=== PATIENT | male | born 1955 | race African-American/Black ===

== ENCOUNTER 2016-12-04 19:58 | Inpatient (IN) | payer OTHER ==
--- NOTE | ~2016-12-04 | CT57 ---
[facility] A Service of [facility] RADIOLOGY TEXT RESULTS PATIENT: JUAN PETERSEN LOCATION: [facility] 473 : 59 UNIT #: [id number] AGE: [address]: Elver Lovelace MD SEX: M ORDER DR: [id number] [facility] [address] [place], [place] [address] [id number] I MR#: [id number] Acc #: [id number] NAME: JUAN PETERSEN : 1955 SEX: M STUDY DATE/TIME: 12/06/2016 15:58 UNIT: [facility] ROOM: [facility] STUDY DESCRIPTION: CT Chest Wo Cont Attending Physician: Catalina Mcgrath M.D. Ordering Physician: Catalina Mcgrath M.D. Primary Care Physician: Evan Thompson Sr., M.D. MEDICAL IMAGING REPORT This report is preliminary unless electronic signature is present EXAM CT chest without contrast, 12/06/2016 INDICATION Hypercalcemia. Concern for occult malignancy. PROCEDURE Unenhanced CT of the chest. COMPARISON None. TECHNIQUE This CT exam was performed with one or more of the following radiation dose reduction techniques: automatic exposure control, adjustment of mA and/or kV according to patient size, and iterative reconstruction. FINDINGS Minimal scarring in the lower lobes. Otherwise the lungs are clear. There is no pleural fluid or pneumothorax. Cardiomegaly. No pericardial fluid. Prominent calcified mediastinal lymph nodes, suggesting sequela of previous granulomatous disease. Previous right thyroidectomy. Nodules in the left lobe measuring up to 1.3 cm. Ascending thoracic aorta measures 4.3 cm. Coronary artery calcification. No aggressive-appearing bone lesion. IMPRESSION 1. No convincing evidence for malignancy in the chest. 2. Previous granulomatous disease. 3. Cardiomegaly, coronary artery calcification and aneurysmal dilation of the ascending thoracic aorta. [facility] A Service [facility] RADIOLOGY TEXT RESULTS PATIENT: JUAN PETERSEN LOCATION: [facility] : 59 UNIT #: [id number] AGE: [address]: Elver Lovelace MD SEX: M ORDER DR: 4. Previous right thyroidectomy. Nodules in the left lobe would be best evaluated with dedicated thyroid ultrasound. Dictated by... Misha Mcmahon M.D. THIS IS AN ELECTRONICALLY VERIFIED REPORT Misha Mcmahon M.D. at 12/07/2016 9:56 PM ANGELA/shauna TD: 12/07/2016 03:28 JOB #: [id number] MEDICAL IMAGING REPORT Page 1 of 1 COPY
--- NOTE | ~2016-12-04 | CT4 ---
[facility] A Service [facility] RADIOLOGY TEXT RESULTS PATIENT: JUAN PETERSEN LOCATION: [facility] 473 : 59 UNIT #: [id number] AGE: [address]: Elver Lovelace MD SEX: M ORDER DR: [id number] [facility] [address] [place], [place] [address] [id number] I MR#: [id number] Acc #: [id number] NAME: JUAN PETERSEN : 1955 SEX: M STUDY DATE/TIME: 12/06/2016 15:58 UNIT: [facility] ROOM: [facility] STUDY DESCRIPTION: CT Abd and Pelv Wo Cont Attending Physician: Catalina Mcgrath M.D. Ordering Physician: Catalina Mcgrath M.D. Primary Care Physician: Evan Thompson Sr., M.D. MEDICAL IMAGING REPORT This report is preliminary unless electronic signature is present EXAM CT abdomen and pelvis without contrast, 12/06/2016 INDICATIONS Hypercalcemia of uncertain cause. Concern for malignancy. Observation for malignancy. PROCEDURE Unenhanced CT of the abdomen and pelvis. This CT exam was performed with one or more of the following radiation dose reduction techniques: automatic exposure control, adjustment of mA and/or kV according to patient size, and iterative reconstruction. COMPARISON None. FINDINGS Refer to the separately dictated chest CT for thoracic findings. ABDOMEN WITHOUT CONTRAST: The liver, spleen, adrenal glands, pancreas, and gallbladder have an unremarkable unenhanced appearance. Bowel loops are nondilated. Moderate colonic stool burden. Colonic diverticula with no convincing evidence for active complication. The appendix is nondilated. No abdominal adenopathy. Multiple bilateral renal cysts. Indeterminate 1.4 cm lesion upper pole of the left kidney. Small fat-containing umbilical hernia. PELVIS WITHOUT CONTRAST: No pelvic mass, fluid or adenopathy. No [facility] A Service [facility] RADIOLOGY TEXT RESULTS PATIENT: JUAN PETERSEN LOCATION: [facility] : 59 UNIT #: [id number] AGE: [address]: Elver Lovelace MD SEX: M ORDER DR: aggressive-appearing bone lesion. IMPRESSION 1. No acute findings. 2. Multiple bilateral renal cysts. 3. A 1.4 cm indeterminate lesion upper pole left kidney may represent a benign proteinaceous or hemorrhagic cyst. Cannot exclude a solid mass on this study. This would be best evaluated with renal protocol MRI or CT if the patient's renal function allows, otherwise unenhanced MRI of renal ultrasound may be helpful. 4. Moderate colonic stool burden. Dictated by... Misha Mcmahon M.D. THIS IS AN ELECTRONICALLY VERIFIED REPORT Misha Mcmahon M.D. at 12/07/2016 9:56 PM ANGELA/shauna TD: 12/07/2016 03:33 JOB #: [id number] MEDICAL IMAGING REPORT Page 1 of 1 COPY
--- NOTE | ~2016-12-04 | DS ---
Unit #: [id number] #: [id number] Patient: JUAN PETERSEN [id number] [address] [place], [place] [address] [id number] I MR#: [id number] NAME: JUAN PETERSEN ROOM: 473 Age: 61 Sex: M Admission Date: 12/04/2016 : 1955 Discharge Date: 12/07/2016 Attending Physician: Elver Lovelace M.D. Primary Care Physician: Evan Thompson Sr., M.D. DISCHARGE SUMMARY DISCHARGE DIAGNOSES 1. Acute on chronic kidney disease, stage 4 to 5. 2. Hypercalcemia. 3. Iron-deficiency anemia/anemia of inflammation. HOSPITAL COURSE The patient is a 61-year-old male admitted through [facility] Emergency Department on 12/04/2016 secondary to elevated creatinine. 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 The patient was started on IV fluids and then given one dose of Bumex. The patient was seen in consultation by Nephrology. The patient's creatinine has been relatively stable. At the time of discharge is 5.6 with a BUN of 55. The patient has undergone vein mapping for future AV fistula which will be scheduled as an outpatient. Given the above interventions and stabilization of the patient's creatinine, he is being discharged home. DISCHARGE MEDICATIONS Celexa 20 mg p.o. daily, trazodone 50 mg p.o. q.h.s., hydroxyzine 25 mg p.o. q.8 hours p.r.n. itch, Toprol-XL 50 mg p.o. daily, pravastatin 40 mg daily, felodipine ER 10 mg daily, minoxidil 10 mg daily, ranitidine 150 mg p.o. b.i.d., Zyloprim 100 mg p.o. b.i.d., melatonin 5 mg p.o. q.h.s. p.r.n. aspirin 81 mg daily, Imdur ER 30 mg p.o. daily, NitroQuick 0.4 mg sublingual as needed for chest pain, and calcitriol 0.5 mcg p.o. daily. FOLLOWUP The patient should follow up with Dr. Harley Weathers with Renal in 2 weeks. Additionally, as mentioned above, the office of Dr. Britton will call the patient with an appointment for left radiocephalic AV fistula surgery. Dictated by... Gualberto Cordoba/yonatan TD: 12/07/2016 22:55 JOB #: [id number] Unit #: [id number] #: [id number] Patient: PETERSENJUAN DISCHARGE SUMMARY Page 1 of 1 X Elver Lovelace MD X DISCHARGE SUMMARY
--- NOTE | ~2016-12-04 | CO ---
Unit #: [id number] #: [id number] Patient: JUAN PETERSEN [id number] [address] [place], [place] [address] [id number] I MR#: [id number] NAME: JUAN PETERSEN ROOM: 473 Age: 61 Sex: M Admission Date: 12/04/2016 : 1955 Attending Physician: Elver Lovelace M.D. Primary Care Physician: Evan Thompson Sr., M.D. Consultation Date: 12/05/2016 CONSULTATION REPORT REASON FOR CONSULTATION Elevated creatinine level. HISTORY OF PRESENT ILLNESS The patient is a 61-year-old male with known history of hypertension, coronary artery disease, hyperlipidemia, depression, and chronic kidney disease, who was lost to follow up, has been ranging the creatinine level in low 5. The patient came after one year and noted to have a BUN of 76 and creatinine of 6.4, then being admitted for possible initiation of dialysis. The patient does not report vomiting, diarrhea, fevers, or chills. PAST MEDICAL HISTORY Significant for chronic kidney disease, stage 4 approaching stage 5; coronary artery disease; hypertension; GERD; hyperlipidemia; and history of depression. PAST SURGICAL HISTORY Bilateral knee surgery and thyroid surgery. SOCIAL HISTORY The patient does not smoke. He has quit drinking more than 10 years ago. HOME MEDICATIONS Allopurinol 100 mg b.i.d., aspirin 81 mg daily, calcitriol 0.5 mcg by mouth daily, Celexa 20 mg daily, Lasix 40 mg daily, Imdur 30 mg daily, minoxidil 10 mg daily, pravastatin 40 mg daily, hydroxyzine 25 mg three times as needed, ranitidine 150 mg b.i.d., trazodone 50 mg at bedtime, felodipine 10 mg daily, and metoprolol 200 mg daily. REVIEW OF SYSTEMS CVS: No chest pain. RESPIRATORY: No cough or expectoration. GI: No diarrhea. No vomiting. : No hematuria. No dysuria. PHYSICAL EXAMINATION GENERAL: The patient is awake and alert. VITAL SIGNS: Temperature is 98.1, heart is rate 71 per minute, and blood pressure is 119/68. HEENT: Head is atraumatic. Extraocular movements are intact. NECK: Supple. There is no elevation of the JVD. CHEST: Clear. Air entry is equal bilaterally. Breathing is vesicular in nature. S1 and S2 audible. There is no S3, no S4. Unit #: [id number] #: [id number] Patient: JUAN PETERSEN ABDOMEN: Soft. There is no organomegaly. No guarding. No rigidity. No rebound tenderness. There is no edema. 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 Cerebellar system is intact. DIAGNOSTIC STUDIES LABORATORY RESULTS: The WBC is 4.7, hemoglobin is 10.5, hematocrit is 32.5, and platelets 192. Sodium is 142, potassium is 4.3, chloride is 106, CO2 is 28, glucose 96, BUN is 65, creatinine 5.9, and calcium 11.3. The urinalysis has 0 to 2 wbc, rbc. IMPRESSION 1. Chronic kidney disease, stage 4 approaching stage 5. We will follow renal function after gentle hydration. Might need initiation of dialysis. The patient's creatinine has been gradually and progressively worsening. We will check a renal ultrasound also for any obstruction. 2. Hypercalcemia, likely secondary to chronic kidney disease. 3. Secondary hyperparathyroidism. 4. Anemia. Check the levels. 5. Possible chronic kidney disease causing anemia. 6. Check iron stores. 7. No clinical uremia. We will follow. Dictated by... Gualberto Bauer TD: 12/07/2016 12:22 JOB #: [id number] CONSULTATION REPORT Page 1 of 1 X Harley Weathers MD X CONSULTATION REPORT
--- NOTE | ~2016-12-04 | HP ---
Unit #: [id number] #: [id number] Patient: JUAN PETERSEN [id number] [address] [place], [place] [address] [id number] I MR#: [id number] NAME: JUAN PETERSEN ROOM: 65949 Age: 61 Sex: M Admission Date: 12/04/2016 : 1955 Attending Physician: Catalina Mcgrath M.D. Primary Care Physician: Evan Thompson Sr., M.D. HISTORY AND PHYSICAL CHIEF COMPLAINT Patient was sent to the ER from nephrology for abnormal labs - BUN 76, creatinine 6.54. DISCUSSION This is a 61-year-old gentleman who has a past medical history of chronic kidney disease, coronary artery disease, hypertension, GERD, dyslipidemia, depression. 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 Weathers, and he was told to come to the emergency room. Today he came to the ER. Yesterday labs were done, and BUN was 76, creatinine 6.4. Today, BUN is 65, creatinine 5.9. The patient is being admitted. He denies any complaints. No chest pain. No shortness of breath. No nausea. No vomiting. No dysuria. No abdominal pain. No headache. No dizziness. PAST MEDICAL HISTORY 1. History of chronic kidney disease. 2. Coronary artery disease. 3. Hypertension. 4. GERD. 5. Dyslipidemia. 6. History of depression. PAST SURGICAL HISTORY 1. History of bilateral knee surgery. 2. Thyroid surgery. SOCIAL HISTORY He does not smoke. He said he used to drink alcohol, but he quit 12-13 years ago. Denies other illicit drug use. FAMILY HISTORY Strong family history of premature coronary artery disease. He says his 2 brothers at age 48 from MS; one brother at age 42 from MS. MEDICATIONS FROM HOME 1. Allopurinol 100 mg b.i.d. 2. Aspirin 81 mg daily. 3. Calcitriol 0.5 mcg p.o. daily. 4. Celexa 20 mg daily. 5. Lasix 40 mg daily. 6. Imdur 30 mg daily. 7. Melatonin 5 mg daily. 8. Minoxidil 10 mg daily. Unit #: [id number] #: [id number] Patient: JUAN PETERSEN 9. Nitroglycerin 0.4 mg sublingual p.r.n. 10. Pravastatin 40 mg daily. 11. Hydroxyzine 25 mg q.8 hours p.r.n. 12. Ranitidine 150 mg b.i.d. 13. Trazodone 50 mg at bedtime. 14. Felodipine 10 mg daily. 15. Metoprolol succinate 200 mg daily. REVIEW OF SYSTEMS All review of systems negative except as in history of present illness. PHYSICAL EXAMINATION GENERAL: Middle-aged man lying in bed comfortably, currently not in any distress. He is alert, awake, oriented x3, comfortable, not in any distress. CURRENT VITALS: Temperature 98.1, heart rate 71, respirations 16, blood pressure 119/68. HEENT: Pupils are equal and reactive to light. Head is normocephalic and atraumatic. Pharynx normal. NECK: Neck is supple. No JVD. No thyromegaly. Positive scar on anterior neck. LUNGS: Lungs are clear to auscultation. No rhonchi. No wheezing. HEART: S1, S2. Regular rate and rhythm. No murmur. No gallop. ABDOMEN: Abdomen is soft, nontender, nondistended. Bowel sounds are positive. BACK: No CVA tenderness. SKIN: No rash. No lesions. Warm, dry. EXTREMITIES: Inspection is normal. No cyanosis. No clubbing. No edema. NEUROLOGIC: Alert, oriented x4. Cranial nerves II-XII intact. Power 5/5 on both sides. PSYCHIATRIC: Normal mood and affect. DIAGNOSTIC STUDIES LABORATORY WORKUP: Sodium is 142, potassium 4.3, chloride 106, glucose 96, BUN 65, creatinine 5.9. LFTs within normal limits. UA is negative. INR is 1. White count is 4.7, hemoglobin 10, hematocrit 32, platelets 192. ASSESSMENT AND PLAN 1. Acute kidney injury on chronic kidney disease. Admit the patient. Start on IV fluids with normal saline, Bumex give one dose of 2 mg IV x1 at 2 a.m. as per nephrology, Dr. Weahters. 2. Coronary artery disease. 3. Hypertension. 4. GERD. 5. Dyslipidemia. 6. History of depression. 7. DVT prophylaxis. Will place the patient on Lovenox renally dosed. 1. Dictated by Gualberto Ghosh/rashid TD: 12/05/2016 07:49 JOB #: [id number] Unit #: [id number] #: [id number] Patient: JUAN PETERSEN HISTORY AND PHYSICAL Page 1 of 1 X X HISTORY AND PHYSICAL
--- NOTE | ~2016-12-04 | CO ---
Unit #: [id number] #: [id number] Patient: JUAN BARRIOS [id number] [address] [address] [id number] I MR#: [id number] NAME: JUAN BARRIOS ROOM: 473 Age: 61 Sex: M Admission Date: 12/04/2016 : 1955 Attending Physician: Elver Lovelace M.D. Primary Care Physician: Evan Thompson Sr., M.D. Consultation Date: 12/06/2016 CONSULTATION REPORT REASON FOR CONSULTATION Dialysis access evaluation. HISTORY Mr. Barrios is a 61-year-old gentleman with a history of chronic kidney disease. He was apparently visiting his primary care physician and was noted to have significant worsening of his renal function on his lab work. He was referred to the hospital for further evaluation. He has never been on dialysis previously, but has anticipated required dialysis in the future. He denies any complaints currently. He has not had any shortness of breath or chest pain. He denies any nausea or vomiting. He has never been on dialysis previously. He is right handed. PAST MEDICAL HISTORY 1. Chronic kidney disease. 2. Coronary artery disease. 3. Hypertension. 4. Gastroesophageal reflux disease. 5. Hyperlipidemia. 6. Depression. PAST SURGICAL HISTORY 1. Left knee reconstructive surgery. 2. Right knee arthroscopy. 3. Thyroidectomy. 4. Removal of a skin lesion from his left wrist. MEDICATIONS 1. Allopurinol 100 mg p.o. twice a day. 2. Aspirin 81 mg p.o. daily. 3. Calcitriol 0.5 mcg p.o. daily. 4. Celexa 20 mg p.o. daily. 5. Lasix 20 mg p.o. daily. 6. Imdur 30 mg p.o. daily. 7. Melatonin 5 mg p.o. daily. 8. Minoxidil 20 mg p.o. daily. 9. Nitroglycerin 0.4 mg sublingual p.r.n. 10. Pravastatin 40 mg p.o. daily. 11. Hydroxyzine 25 mg p.o. every eight hours as needed. 12. Ranitidine 150 mg p.o. twice a day. 13. Trazodone 50 mg p.o. daily at bedtime. 14. Felodipine 10 mg p.o. daily. 15. Metoprolol 200 mg p.o. daily. Unit #: [id number] #: [id number] Patient: JUAN BARRIOS ALLERGIES None. SOCIAL HISTORY He lives with his girlfriend in [place]. 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 He has never smoked. He quit drinking alcohol more than ten years ago. FAMILY HISTORY He has two brothers who in their 40s from heart attacks. He has a third brother who survived a heart attack but required coronary bypass at an early age. His mother had tuberculosis as a child. His father has had lung cancer and prostate cancer. REVIEW OF SYSTEMS Ten point review of systems is negative. PHYSICAL EXAMINATION VITALS: Temperature 98.1, heart rate 71, respirations 16, blood pressure 119/68. GENERAL APPEARANCE: Thin, black male. Pleasant and cooperative. Fully alert and oriented. Appropriate affect. Fair historian. No acute distress. HEENT: Extraocular movements intact. No xanthelasma of the eyelids. Oral mucosa is pink and moist. NECK: Anterior cervical scar from thyroidectomy. No JVD. No cervical bruits. LUNGS: Clear bilaterally. No use of accessory respiratory muscles. HEART: Regular rate and rhythm without murmur. ABDOMEN: Soft, nondistended, and nontender. No palpable masses. No palpable hepatomegaly or splenomegaly. EXTREMITIES: Hands and feet are pink but warm. No pedal edema. Easily palpable radial and femoral pulses bilaterally. Superficial veins in both arms appear good size and compressible. IMPRESSION 1. Stage 4 chronic kidney disease with acute kidney injury: Anticipated required dialysis in the future. 2. Coronary artery disease. 3. Hypertension. 4. Gastroesophageal reflux disease. 5. Hyperlipidemia. 6. History of depression. PLAN I have scheduled the patient for a bilateral upper extremity vein map to determine his best option for fdc dialysis access. He appears to be an appropriate candidate for creation of an autogenous arterial venous fistula, preferably in his left arm since he is right handed. We can discuss timing of surgery following completion of his vein map. If he remains in the hospital for a few days, we may be able to do something while he is here. If he is ready for discharge, we can schedule his fistula creation as an outpatient. These findings and recommendations were discussed with the patient. Unit #: [id number] #: [id number] Patient: JUAN BARRIOS Dictated by... Gualberto Mackay/tre TD: 12/07/2016 10:32 JOB #: [id number] CC: Harley Weathers M.D. CONSULTATION REPORT Page 1 of 1 X Andrés Britton MD X CONSULTATION REPORT
--- NOTE | ~2016-12-04 | US77 ---
[facility] A Service of [facility] RADIOLOGY TEXT RESULTS PATIENT: JUAN PETERSEN LOCATION: [facility] [address]-46 : [birth year] UNIT #: [id number] AGE: [address]: Catalina Mcgrath MD SEX: M ORDER DR: [id number] [facility] [address] [place], [place] [address] [id number] I MR#: [id number] Acc #: [id number] NAME: JUAN PETERSEN : 1955 SEX: M STUDY DATE/TIME: 12/05/2016 14:42 UNIT: [facility] ROOM: 95583 STUDY DESCRIPTION: US Kidney Bilateral Complete Attending Physician: Catalina Mcgrath M.D. Ordering Physician: Yasir Ca M.D. Primary Care Physician: Evan Thompson Sr., M.D. MEDICAL IMAGING REPORT This report is preliminary unless electronic signature is present EXAM Ultrasound bilateral kidneys, complete. DATE OF EXAM 12/05/2016 HISTORY Rule out obstruction. Surgeon Chief sent patient in for creatinine of 5.5, acute on chronic kidney disease. History of hypertension. COMMENT Real-time ultrasonography of the bilateral kidneys and images of the urinary bladder are obtained. Images obtained in 2 sessions to acquire better images. Second session performed with the help of the patient's nurse so the patient could be better positioned per technologist. Evaluation of the right kidney shows measurements of 12.3 x 6.9 x 7.5 cm. there are multiple apparent renal cysts, right kidney but there is no convincing evidence for hydronephrosis. Echotexture is abnormal with increased echogenicity consistent with underlying chronic medical renal disease. The number of cysts, raise concern for autosomal dominant polycystic kidney disease and please evaluate further clinically. Left kidney measurements are 12.3 x 7.1 x 5.7 cm. Again, there are multiple apparent cysts, left kidney and no convincing evidence for left-sided hydronephrosis. Echotexture is abnormally increased consistent with underlying chronic medical renal disease. Cortical thickness measured on the left is about 0.8 cm and on the right about 1.1 cm, though there is considerable distortion of renal parenchyma by the cyst. The urinary bladder is unremarkable. Ureteral jets not identified. IMPRESSION 1. There are too numerous to count bilateral renal cysts. The [facility] A Service of [facility] RADIOLOGY TEXT RESULTS PATIENT: JUAN PETERSEN LOCATION: [facility] [id number] : [birth year] UNIT #: [id number] AGE: [address]: Catalina Mcgrath MD SEX: M ORDER DR: appearance is most concerning for autosomal dominant polycystic kidney disease given the number of cysts in the patient's age group, but please correlate further clinically. No convincing evidence for hydronephrosis. 2. Abnormally hyperechoic renal parenchyma is consistent with underlying chronic medical renal disease. 3. Bladder is unremarkable. The ureteral jets are not documented. STAT * RESULT Dictated by... Harriet Helton M.D. THIS IS AN ELECTRONICALLY VERIFIED REPORT Harriet Helton M.D. at 12/05/2016 8:48 PM TEENA/angelina TD: 12/05/2016 17:25 JOB #: [id number] MEDICAL IMAGING REPORT Page 1 of 1 COPY
--- NOTE | ~2016-12-04 | A ---
[facility] Nutrition Therapy DATE: 12/07/16 Patient: JUAN PETERSEN Physician: VIRGIL Address: [address] Room/Bed: [address] [place] [address], Zip: [place] [address] Admit Date: 12/04/16 Date of : [birth year] Height: 6 1 Weight: 169 77 NUTRITIONAL ASSESSMENT: REASON: 4 NUTRITION RISK PT RE: WEIGHT LOSS, ALSO CONSULT RECEIVED PT IS 61 Y.O. MALE ADMITTED FOR DARWIN, CKD PMH: CKD, CAD, HTN, GERD, HLD, DEPRESSION Anthropometrics: 6'1", WT: 188# (PER PT) (85 KG), BMI: 24.8 Labs: BUN: 55, CREAT: 5.6, CA+:11.1 Meds: PEPCID, LIPITOR, NACL I/O & Bowel function: 820/1051 Skin Integrity: NO KNOWN SKIN ISSUES Estimated Nutrition Needs: INCREASED NUTRIENT NEEDS 2' WEIGHT LOSS NOTED Assessment: CHART REVIEWED AND EVENTS NOTED. PT SEEN FOR WEIGHT LOSS. PT REPORTS DECREASED PO INTAKE 2' DECREASED APPETITE PAST SEVERAL MONTHS. PT NOTES ONLY CONSUMING ONE MEAL DAILY (NOT A BREAKFAST EATER). PT REPORTS LOSING ~40# SINCE 2015/18% SEVERE WEIGHT LOSS IN PAST [address] ENCOURAGED ADEQUATE KCAL AND PROTEIN INTAKE, PT AGREED TO MOOKIE ENSURE COMPACT BID W/MEALS. PT ALSO REQUESTED WRITTEN DIET EDUCATION. RD PROVIDED. PT REPORTED NO DIET QUESTIONS AT THIS TIME. RD TO FOLLOW. Dx: INADEQUATE PROTEIN-ENERGY INTAKE R/T DECREASED APPETITE AEB PT REPORT ABOVE, ~18% SEVERE WEIGHT LOSS NOTED IN PAST 7 MONTHS. Intervention: 1. HH DIET 2. RD CONSULT 3. MOOKIE ENSURE COMPACT BID 4. RD PROVIDED WRITTEN DIET EDUCATION Monitoring, Evaluation and Goals: 1. PO INTAKE; PROVIDE AND CONSUME ADEQUATE NUTRITION W/NO C/O N/V/D (PO>50%) 2. WEIGHTS; PREVENT FURTHER WEIGHT LOSS; PROMOTE LEAN BODY MASS 3. LABS; WNL MONITOR: -PO INTAKE/APPETITE -WEIGHTS -SUPPLEMENT INTAKE [facility] Nutrition Therapy DATE: 12/07/16 Patient: JUAN PETERSEN Physician: VIRGIL Address: [address] Room/Bed: [address] [place] [address], Zip: [place] [address] Admit Date: 12/04/16 Date of : [birth year] Height: 6 1 Weight: 169 77 -EDUCATION NEEDS Recommendations: 1. PLEASE ORDER MOOKIE ENSURE COMPACT SUPPLEMENT BID W/MEALS 2. APPRECIATE FAMILY AND STAFF TO ENCOURAGE ADEQUATE KCAL AND PROTEIN INTAKE RD WILL F/U PER PROTOCOL PT IS MODERATELY COMPROMISED Respectfully, EMILY ZAMORA MS, RD, LD Food and Nutritional Services [facility] cc: client file
--- NOTE | ~2016-12-04 | US146 ---
[facility] A Service of [facility] RADIOLOGY TEXT RESULTS PATIENT: JUAN PETERSEN LOCATION: [facility] [id number] : 59 UNIT #: [id number] AGE: [address]: Elver Lovelace MD SEX: M ORDER DR: [id number] [facility] [address] [place], [place] [address] [id number] I MR#: [id number] #: [id number] NAME: JUAN PETERSEN : 1955 SEX: M STUDY DATE/TIME: 12/06/2016 12:24 UNIT: [facility] ROOM: [facility] STUDY DESCRIPTION: US Vein Map Hemodial Access Attending Physician: Elver Lovelace M.D. Ordering Physician: Andrés Britton M.D. Primary Care Physician: Evan Thompson Sr., M.D. MEDICAL IMAGING REPORT This report is preliminary unless electronic signature is present EXAM Bilateral upper extremity vein map, 12/06/2016 HISTORY Chronic kidney disease. Dialysis access evaluation. FINDINGS High-resolution B-mode imaging and color flow Doppler analysis was performed of the upper extremity arteries bilaterally. There is a normal triphasic signal in the brachial arteries on both sides. There is also a normal pulsatile flow signal in the radial and ulnar arteries bilaterally. High-resolution B-mode imaging was performed of the cephalic and basilic veins bilaterally. All veins are fully compressible with no intraluminal thrombus. The right cephalic vein measures 6.0 mm in the proximal upper arm, 6.0 mm in the mid upper arm, and 8.0 mm in the distal upper arm. There is an IV in the cephalic vein in the antecubital region. The cephalic vein measures 6.0 mm in the proximal forearm, 6.0 mm in the mid forearm, and 6.0 mm in the distal forearm. The right basilic vein measures 9.0 mm in the proximal upper arm, 8.0 mm in the mid upper arm, 8.0 mm in the distal upper arm, 5.0 mm at the elbow, 5.0 mm in the proximal forearm, 4.0 mm mid forearm, and 6.0 mm in the distal forearm. The left cephalic vein measures 7.0 mm in the proximal upper arm, 8.0 mm in mid upper arm, 9.0 mm in the distal upper arm, 12.0 mm at the elbow, 6.0 mm in the proximal forearm, 7.0 mm in the mid forearm, and 3.0 mm in the distal forearm. [facility] A Service of [facility] RADIOLOGY TEXT RESULTS PATIENT: JUAN PETERSEN LOCATION: [facility] [id number] : 59 UNIT #: [id number] AGE: [address]: Elver Lovelace MD SEX: M ORDER DR: The left basilic vein measures 12.0 mm in the proximal upper arm, 7.0 mm in the mid upper arm, 7.0 mm in the distal upper arm, 6.0 mm at the elbow, 4.0 mm in the proximal forearm, 4.0 mm in the mid forearm, and 3.0 mm in the distal forearm. IMPRESSION Normal cephalic and basilic veins bilaterally. All veins appear adequate for use as a dialysis fistula. Dictated by... Andrés Britton M.D. THIS IS AN ELECTRONICALLY VERIFIED REPORT Andrés Britton M.D. at 12/10/2016 8:27 AM Kira TD: 12/07/2016 09:20 JOB #: [id number] MEDICAL IMAGING REPORT Page 1 of 1 COPY
[2016-12-04 18:47] LABS: BASOPHIL% 0.5 % (0-2.5); EOSINOPHIL# 0.2 X10e3 (0-0.7); EOSINOPHIL% 4.6 % (0.0-7.0); HEMATOCRIT 32.5 % (38.0-50.0); HEMOGLOBIN 10.5 gm/dL (13.0-16.0); MEAN CELL VOLUME 90.5 FL (83-96); MEAN CORPUSCULAR HEMOGLOBIN 29.4 PG (28-34); MEAN CORPUSCULAR HGB CONC 32.4 g/dL (30-36); MEAN PLATELET VOLUME 7.5 FL (6.5-11.5); MONOCYTE# 0.7 X10e3 (0-1.0); NEUTROPHIL# 2.7 X10e3 (1.5-7.1); NEUTROPHIL% 57.9 % (40-75); PLATELET COUNT 192 X10e3 (140-420); RED BLOOD COUNT 3.59 X10e (3.90-5.60); RED CELL DISTRIBUTION WIDTH 15.5 % (11.0-15.5); WHITE BLOOD COUNT 4.7 X10e3 (4.0-10.5)
[2016-12-04 18:48] LABS: DIFF IND NO
[2016-12-04 18:58] LABS: URINE SOURCE CLEAN CATCH
[2016-12-04 19:04] LABS: URINE APPEARANCE CLEAR; URINE BILIRUBIN NEG (NEG); URINE BLOOD 1+ (NEG); URINE COLOR YELLOW; URINE GLUCOSE 100 MG/DL (NEG); URINE KETONE NEG (NEG); URINE LEUKOCYTE ESTERASE NEG (NEG); URINE NITRATE NEG (NEG); URINE PH 7.5 (5-8); URINE PROTEIN 1+ (NEG); URINE SPECIFIC GRAVITY 1.008 (1.003-1.035); URINE UROBILINOGEN 0.2 MG/DL (NEG)
[2016-12-04 19:07] LABS: URBCS1 AUWI 0-2 /[HPF] (0-2); URINE BACTERIA AUWI NEG (NEGATIVE); URINE SQUAMOUS EPITHELIAL CELL NONE SEEN /[HPF]; UWBCS1 AUWI 0-2 (0-5)
[2016-12-04 19:08] LABS: CULTURE INDICATED? NO
[2016-12-04 19:10] LABS: ALBUMIN SERUM 3.7 g/dL (3.5-5.0); BILIRUBIN, DIRECT 0.1 mg/dL (0.0-0.2); BILIRUBIN,INDIRECT 0.5 mg/dL (0.0-0.9); BILIRUBIN,TOTAL 0.6 mg/dL (0.2-2.0); BUN/CREATININE RATIO 11.01; CALCIUM SERUM 11.3 mg/dL (8.4-10.2); CREATININE SERUM 5.9 mg/dL (0.6-1.4); GLOM FILT RATE Estimated 11.1 mL/min (>60); POTASSIUM 4.3 mmol/L (3.5-5.1); PROTEIN TOTAL SERUM 6.8 g/dL (6.0-8.3)
[~2016-12-04 19:58] MED LIST: ACID CONTROL150 M1 PO; ASPIRIN EC81 M1 PO; CELEXA20 M1 PO; DESYREL50 MG PO; FELODIPINE ER10 M1 PO; HYDROXYZINE HCL25 M1 PO; IMDUR-ER30 M1 PO; LASIX PO; MELATONIN5 M1 PO; METOPROLOL SUC200 MG PO; MINOXIDIL10 MG PO; NITROQUICK0.4 MG SL; PRAVASTATIN SOD40 MG PO; ROCALTROL0.5 MC1 PO; ZYLOPRIM100 MG PO
[2016-12-05 08:43] LABS: BUN/CREATININE RATIO 11.27; CREATININE SERUM 5.5 mg/dL (0.6-1.4); GLOM FILT RATE Estimated 12.1 mL/min (>60); POTASSIUM 3.6 mmol/L (3.5-5.1)
[2016-12-05 13:16] LABS: IRON SERUM 49 ug/dL (45-182); TOTAL IRON BINDING CAPACITY 261 ug/dL (252-460); TRANSFERRIN 186 mg/dL (180-329); TRANSFERRIN SATURATION 19 % (20-50)
[2016-12-06 05:55] LABS: EOSINOPHIL# 0.2 X10e3 (0-0.7); EOSINOPHIL% 4.8 % (0.0-7.0); HEMATOCRIT 31.7 % (38.0-50.0); HEMOGLOBIN 10.4 gm/dL (13.0-16.0); LYMPHOCYTE# 1.1 X10e3 (1.0-3.5); LYMPHOCYTE% 27.1 % (17.0-45.0); MEAN CELL VOLUME 89.8 FL (83-96); MEAN CORPUSCULAR HEMOGLOBIN 29.4 PG (28-34); MEAN CORPUSCULAR HGB CONC 32.8 g/dL (30-36); MONOCYTE# 0.7 X10e3 (0-1.0); MONOCYTE% 16.8 % (3.0-12.0); NEUTROPHIL# 2.1 X10e3 (1.5-7.1); NEUTROPHIL% 50.3 % (40-75); PLATELET COUNT 173 X10e3 (140-420); RED BLOOD COUNT 3.53 X10e (3.90-5.60); RED CELL DISTRIBUTION WIDTH 15.6 % (11.0-15.5); WHITE BLOOD COUNT 4.2 X10e3 (4.0-10.5)
[2016-12-06 05:57] LABS: DIFF IND NO
[2016-12-06 06:38] LABS: CALCIUM SERUM 10.8 mg/dL (8.4-10.2); CREATININE SERUM 5.6 mg/dL (0.6-1.4); GLOM FILT RATE Estimated 11.8 mL/min (>60); POTASSIUM 3.6 mmol/L (3.5-5.1)
[2016-12-07 04:11] LABS: BASOPHIL% 0.8 % (0-2.5); EOSINOPHIL# 0.2 X10e3 (0-0.7); EOSINOPHIL% 4.6 % (0.0-7.0); HEMATOCRIT 31.1 % (38.0-50.0); HEMOGLOBIN 10.2 gm/dL (13.0-16.0); LYMPHOCYTE# 1.2 X10e3 (1.0-3.5); LYMPHOCYTE% 29.1 % (17.0-45.0); MEAN CELL VOLUME 88.8 FL (83-96); MEAN CORPUSCULAR HEMOGLOBIN 29.2 PG (28-34); MEAN CORPUSCULAR HGB CONC 32.9 g/dL (30-36); MEAN PLATELET VOLUME 7.9 FL (6.5-11.5); MONOCYTE# 0.6 X10e3 (0-1.0); MONOCYTE% 13.8 % (3.0-12.0); NEUTROPHIL# 2.1 X10e3 (1.5-7.1); NEUTROPHIL% 51.7 % (40-75); PLATELET COUNT 168 X10e3 (140-420); RED CELL DISTRIBUTION WIDTH 15.3 % (11.0-15.5); WHITE BLOOD COUNT 4.1 X10e3 (4.0-10.5)
[2016-12-07 04:12] LABS: DIFF IND NO
[2016-12-07 04:35] LABS: BUN/CREATININE RATIO 9.82; CALCIUM SERUM 11.1 mg/dL (8.4-10.2); CREATININE SERUM 5.6 mg/dL (0.6-1.4); GLOM FILT RATE Estimated 11.8 mL/min (>60); POTASSIUM 4.1 mmol/L (3.5-5.1)
[2016-12-07] MEDS ORDERED: METOPROLOL SUCC50 MG PO (15:58)
== END 2016-12-07 17:15 | disposition home or self-care (01) | DRG 684 ==
LOC: CED 19:58 → CEDOF 22:00 → C4C 12-06 16:40
PROVIDERS: Emergency Medicine; Family Medicine; Internal Medicine Nephrology; Student in an Organized Health Care Education/Training Program
DX: N17.9 Acute kidney failure, unspecified (principal); E83.52 Hypercalcemia; I12.9 Hypertensive chronic kidney disease with stage 1 through stage 4 chronic kidney disease, or unspecified chronic kidney disease; D50.9 Iron deficiency anemia, unspecified; I25.10 Atherosclerotic heart disease of native coronary artery without angina pectoris; K21.9 Gastro-esophageal reflux disease without esophagitis; F32.9 Major depressive disorder, single episode, unspecified; Z82.49 Family history of ischemic heart disease and other diseases of the circulatory system; Z79.82 Long term (current) use of aspirin; N18.4 Chronic kidney disease, stage 4 (severe); E87.6 Hypokalemia
CPT/HCPCS: 71250; 74176; 76770; 80048; 80076; 81003; 82306; 82728; 83519; 83540; 83550; 84443; 85025; 85610; 85730; 99285; G0365; J1650; J2916

== ENCOUNTER → 2017-01-19 | Day surgery (SDC) | payer OTHER ==
[~2017-01-19] MED LIST changes: +HYDROCODON-ACE1 EAC7 PO; +IMDUR PO; +METOPROLOL SUCC50 MG PO; +MIACALCIN3.7 ML; +MINOXIDIL PO; +PATIENT'S PHARMACY; +TRIAMCINOLONE AC1 GM TOP
--- NOTE | ~2017-01-19 | OR ---
Unit #: [id number] #: [id number] Patient: DEWAYNE BARRIOS [id number] [address] [place], [place] [address] [id number] O MR#: [id number] NAME: DEWAYNE BARRIOS ROOM: Date of Procedure: 01/19/2017 Admission Date: 01/19/2017 Surgeon: Andrés Britton M.D. : 1955 Attending Physician: Andrés Britton M.D. Referring Physician: Andrés Britton M.D. Primary Care Physician: Evan Thompson Sr., M.D. OPERATIVE REPORT PREOPERATIVE DIAGNOSIS Chronic kidney disease. POSTOPERATIVE DIAGNOSIS Chronic kidney disease. PROCEDURE PERFORMED Placement of left radiocephalic arteriovenous fistula. SOLAR MANUFACTURER'S REPRESENTATIVE Andres Garcia CSA. ANESTHESIA 1% Xylocaine local with MAC. ESTIMATED BLOOD LOSS 20 mL. COMPLICATIONS None. INDICATIONS FOR PROCEDURE Mr. Dewayne Barrios is a 61-year-old gentleman with chronic kidney disease, who is anticipated to require hemodialysis. Preoperative vein mapping demonstrated a good cephalic and basilic vein in both arms. He is right-handed. He was taken to the operating room to undergo elective placement of his first long-term dialysis access. DESCRIPTION OF PROCEDURE The patient was placed in supine position with his left arm abducted on an arm board. His left arm and hand were prepped and sterilely draped. 1% Xylocaine was used to infiltrate the skin and subcutaneous tissue between the cephalic vein and the radial artery. A longitudinal incision was made between the vein and the artery. Dissection continued in the subcutaneous tissue laterally to identify the vein. The vein was dissected free circumferentially for about 2 cm. The vein appeared to be good caliber and adequate for use as a fistula. Dissection continued in the subcutaneous tissue medially to expose the artery. The fascia was incised. A very small artery was identified and dissected free circumferentially. The artery was felt to be in some spasm, but no other arteries were identified in the vicinity. The artery Unit #: [id number] #: [id number] Patient: DEWAYNE BARRIOS was dissected free circumferentially for about 10 mm. The patient was given heparin 100 units/kg, which was allowed to circulate. Small vascular clamps were placed proximally and distally on the artery. An 11-blade was used to make a longitudinal incision on the artery, which was extended proximally and distally with Hairston scissors. The cephalic vein was ligated distally with a 3-0 silk tie and transected. The vein was then beveled slightly to fit the size of the arteriotomy. The end of the vein was sewn to the side of the artery using running 6-0 Prolene circumferentially. Prior to completion of the anastomosis, an attempt was made to pass coronary dilators through the artery. However, a 2 mm coronary dilator would not pass through the artery proximally. A 1.5 mm coronary dilator would pass through the artery. After further evaluation, it was felt that the artery was too small to sustain a fistula. Dissection continued deeper in the arm and the true radial artery was identified. There appeared to be 2 parallel arteries and the smaller artery was chosen initially. The larger artery was then dissected free circumferentially for about 15 mm. The original artery was doubly ligated with 3-0 silk ties and divided. The anastomosis between the original artery and the vein was taken down. Small vascular clamps were placed proximally and distally on the radial artery. An 11-blade was used to make a longitudinal incision on the radial artery, which was extended proximally and distally with Hairston scissors. The end of the cephalic vein was sewn to the side of the radial artery using running 6-0 Prolene circumferentially. Prior to completion of the anastomosis, blood was flushed retrograde and antegrade. Following completion of the anastomosis, there was a palpable thrill in the fistula as well as a palpable radial pulse distal to the fistula. The vein appeared to be slightly twisted. Dissection continued proximally to identify the 3 branches, which were restraining the vein. Each of the three branches was doubly ligated with 3-0 silk ties and divided to allow the vein to sit more freely. Following ligation of the side branches, the vein appeared to be sitting comfortably without any twist. Protamine 25 mg intravenously was given to partially reverse the anticoagulation. Additional hemostasis was achieved with use of topical Floseal. The subcutaneous tissue was closed using interrupted 3-0 Vicryl. The skin was closed using running 4-0 Vicryl subcuticular sutures. Sterile dressings were applied. Sponge and needle count were correct. The patient tolerated the procedure well and was taken to the postanesthesia care unit in satisfactory condition. Dictated by... Gualberto Mackay/yonatan TD: 01/20/2017 05:04 JOB #: [id number] CC: Harley Weathers MD Unit #: [id number] #: [id number] Patient: DEWAYNE BARRIOS OPERATIVE REPORT Page 1 of 1 X Andrés Britton MD X PROCEDURE OPERATIVE NOTE
--- NOTE | ~2017-01-19 | EKG ---
PATIENT: JUAN PETERSEN UNIT #: [id number] Ventricular Rate: 74 BPM Atrial Rate: 74 BPM P-R Interval: 248 ms QRS Duration: 180 ms Q-T Interval: 436 ms QTC Calculation(Bezet): 483 ms P [place]: 14 degrees Calculated R [place]: -81 degrees Calculated T [place]: 24 degrees Diagnosis Line: Sinus rhythm with 1st degree A-V block Diagnosis Line: Left axis deviation Diagnosis Line: Left anterior fascicular block Diagnosis Line: (RBBB and left anterior fascicular block) Diagnosis Line: Right bundle branch block Diagnosis Line: Abnormal ECG Diagnosis Line: No previous ECGs available Diagnosis Line: Confirmed by LUCRECIA PEREZ MD ([id number]) on Diagnosis Line: 01/19/2017 9:47:19 PM INTERPRETING MD: CARLENE
[2017-01-19 09:29] LABS: BASOPHIL% 0.8 % (0-2.5); EOSINOPHIL# 0.2 X10e3 (0-0.7); EOSINOPHIL% 4.7 % (0.0-7.0); HEMATOCRIT 32.6 % (38.0-50.0); HEMOGLOBIN 10.9 gm/dL (13.0-16.0); LYMPHOCYTE# 1.3 X10e3 (1.0-3.5); LYMPHOCYTE% 28.1 % (17.0-45.0); MEAN CELL VOLUME 89.7 FL (83-96); MEAN CORPUSCULAR HGB CONC 33.5 g/dL (30-36); MONOCYTE# 0.7 X10e3 (0-1.0); MONOCYTE% 13.8 % (3.0-12.0); NEUTROPHIL# 2.5 X10e3 (1.5-7.1); NEUTROPHIL% 52.6 % (40-75); PLATELET COUNT 192 X10e3 (140-420); RED BLOOD COUNT 3.63 X10e (3.90-5.60); RED CELL DISTRIBUTION WIDTH 15.1 % (11.0-15.5); WHITE BLOOD COUNT 4.8 X10e3 (4.0-10.5)
[2017-01-19 09:31] LABS: DIFF IND NO
[2017-01-19 09:53] LABS: BUN/CREATININE RATIO 8.93; CALCIUM SERUM 12.6 mg/dL (8.4-10.2); CREATININE SERUM 6.6 mg/dL (0.6-1.4); GLOM FILT RATE Estimated 9.7 mL/min (>60); POTASSIUM 3.9 mmol/L (3.5-5.1)
[2017-01-22 12:26] LABS: CALCIUM (PTHINTACT) 12.4 mg/dL (8.6-10.3)
== END | disposition home or self-care (01) ==
LOC: CSUR 08:24
PROVIDERS: Anesthesiology; Surgery Vascular Surgery
DX: I12.0 Hypertensive chronic kidney disease with stage 5 chronic kidney disease or end stage renal disease (principal); N18.6 End stage renal disease; I25.10 Atherosclerotic heart disease of native coronary artery without angina pectoris; K21.9 Gastro-esophageal reflux disease without esophagitis; E78.5 Hyperlipidemia, unspecified; G47.30 Sleep apnea, unspecified; Z79.82 Long term (current) use of aspirin; Z79.899 Other long term (current) drug therapy
CPT/HCPCS: 80048; 82310; 83970; 85025; 93005; J0690; J1644; J2250; J2720; J3010

== ENCOUNTER 2017-01-29 10:57 | Inpatient (IN) | payer OTHER ==
--- NOTE | ~2017-01-29 | CO ---
Unit #: [id number] #: [id number] Patient: JUAN PETERSEN [id number] [address] [address] [id number] I MR#: [id number] NAME: JUAN PETERSEN ROOM: 470 Age: 61 Sex: M Admission Date: 01/30/2017 : 1955 Attending Physician: Trinh Roberts M.D. Primary Care Physician: Evan Thompson Sr., M.D. CONSULTATION REPORT CHIEF COMPLAINT Renal failure, hypercalcemia, 1.4 cm left renal mass, PTH normal, but PTH related peptide is 32 and normal 14-27. HISTORY OF PRESENT ILLNESS The patient is a 61-year-old male who has uncontrolled hypertension for a long time. He has a chronic kidney disease. His kidney gradually worsened. He came to the hospital to get started on dialysis. He is getting dialysis right now. He is going for tunnelled catheter. His CBC showed white blood cell count 4.6, hemoglobin 10.4 and platelets 203. His creatinine is 7.1, calcium 12.2, phosphorus 5.7. His PTH is 14 and normal is 14-64, but PTH related peptide is elevated to 32 and normal is 14-27. The patient had a CT of the chest, abdomen and pelvis. On the left renal there is a 1.4 cm indeterminate mass. PAST MEDICAL HISTORY 1. Hypertension. 2. Now endstage renal disease on dialysis. PAST SURGICAL HISTORY Left knee surgery after fracture. SOCIAL HISTORY The patient is not a smoker. Used to drink socially, but quit. 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 FAMILY HISTORY Mother had tuberculosis. Father prostate cancer, lung cancer, head and neck cancer and he is 84 years old. ALLERGIES No known drug allergies. REVIEW OF SYSTEMS CONSTITUTIONAL: No fever, no chills, no sweats, no weight loss. EYES: No visual symptoms. EARS, NOSE AND THROAT: There is no runny nose or sore throat or difficulty hearing. CARDIOVASCULAR: No chest pain. No shortness of breath. No palpitations. No orthopnea. No PND. RESPIRATORY: No cough. No wheezing. No hemoptysis. Unit #: [id number] #: [id number] Patient: PETERSEN,VINCENT GASTROINTESTINAL: No nausea, vomiting, diarrhea, constipation, hematochezia or melena. GENITOURINARY: No urinary frequency, hesitancy or urgency. No blood in the urine. MUSCULOSKELETAL: No muscle or joint pain. NEUROLOGIC: No headache. No numbness or tingling. No weakness. No seizure. PSYCHIATRIC: No anxiety, depression or mood disturbance. ENDOCRINE: No excessive urination or thirst. DERMATOLOGIC: No rash or change in the skin. ALLERGIC/IMMUNOLOGIC: No symptoms. HEMATOLOGIC/LYMPHATIC: Denies any symptoms. PHYSICAL EXAMINATION GENERAL: Patient is comfortable. ECOG is 0. The patient is pleasant. VITALS: Afebrile. (1) , O2 saturations on room air 97%, blood pressure 107/76. HEENT: Moist mucosa. Pupils equally reactive to light. Extraocular muscles intact. Sclerae anicteric. No obvious bleeding from nasal mucosa or oral mucosa. Scalp normal. Hearing normal. NECK: No JVD. No lymphadenopathy. LYMPHATIC/HEMATOLOGIC: There is no palpable adenopathy in the neck, axilla or inguinal area. CARDIOVASCULAR: S1, S2. Regular rate and rhythm. No S3 or S4. RESPIRATORY: Chest symmetrical, normal. Clear to auscultation bilaterally. No wheezes, no rales, no rhonchi. No dullness to percussion. ABDOMEN/GASTROINTESTINAL: Abdomen is soft, nontender, nondistended. No hepatosplenomegaly. EXTREMITIES: There is no clubbing, no cyanosis, no edema. No varicose veins. NEUROLOGICAL: Patient is alert, awake and oriented x3. Cranial nerves II-XII are intact. Sensory grossly intact. Motor is 4/5 in all four extremities. Gait is normal. Station is normal. Language is normal. Memory is normal. DTRs +2 in all four extremities. MUSCULOSKELETAL: No joint swelling. No bony tenderness. No muscle tenderness. SKIN: No petechiae, no rash, no ecchymosis. PSYCHIATRIC: No anxiety. No delusions or hallucinations. There is no agitation. Eye contact is normal. Affect is appropriate. There is no flight of ideas. DIAGNOSTIC STUDIES IMAGING: As mentioned above. LABORATORY: As mentioned above. CARDIOVASCULAR: As mentioned above. ASSESSMENT This is a 61-year-old male with the following conditions: 1. Hypercalcemia. He has anemia. He has renal failure. (2) fixation is pending. I am going to get a bone marrow biopsy. 2. PTH related peptide. This is elevated. Bone marrow biopsy will provide information in this regard. We also have to monitor his 1.4 cm left renal mass. 3. Renal. As mentioned above he has a mass. We cannot do MRI or CT scan triple phase because of the renal failure. In the future I may get a biopsy. Unit #: [id number] #: [id number] Patient: JUAN PETERSEN PLAN Discussion with the patient and primary care. At present I am not sure why he his PTH related peptide is elevated. First I have to do multiple myeloma, getting bone marrow biopsy. In the future I may get biopsy of the kidney. Dictated by... Melecio Rao M.D. NANCY/coral TD: 02/02/2017 13:18 JOB #: [id number] CONSULTATION REPORT Page 1 of 1 X Melecio Rao MD X CONSULTATION REPORT
--- NOTE | ~2017-01-29 | HP ---
Unit #: [id number] #: [id number] Patient: JUAN PETERSEN [id number] [facility]. [place], [place] [address] [id number] I MR#: [id number] NAME: JUAN PETERSEN ROOM: 10129 Age: 61 Sex: M Admission Date: 01/29/2017 : 1955 Attending Physician: Isadora Alanis M.D. Primary Care Physician: Evan Thompson Sr., M.D. HISTORY AND PHYSICAL CHIEF COMPLAINT Sent by Gualberto for dialysis. HISTORY OF PRESENT ILLNESS The patient is a 61-year-old male with past medical history of chronic kidney disease, secondary hyperparathyroidism, chronic anemia, hypertension, hyperlipidemia, coronary artery disease, depression, GERD, alcohol abuse, who presented to the emergency department for evaluation of the above. The patient states that he was sent by Dr. Weathers to the emergency department for dialysis. The patient apparently saw Dr. Weathers yesterday and labs from last week were reviewed. He was told that he needed dialysis and to come to the emergency department. The patient denies any chest pain, no fever, no shortness of breath, no cough or cold symptoms. He continues to make urine but denies any urinary symptoms. No abdominal pain. In the emergency department the patient's BUN and creatinine are 72 and 7.2 respectively, calcium is 11.4, phosphorus 6.2, magnesium 2.6. He is being admitted to [facility] for evaluation and further treatment. Of note, the patient had a left radiocephalic AV fistula on January 19, [address] Britton. PAST MEDICAL HISTORY 1. Admission to [facility] December 04 through December 07, 2016 for exaks-qz-ayzjwwt kidney disease. 2. Chronic kidney disease followed by Dr. Bacon. 3. Coronary artery disease followed by Dr. Gray. 4. Hypertension. 5. Hyperlipidemia. 6. Secondary hyperparathyroidism. 7. Depression. 8. GERD. PAST SURGICAL HISTORY 1. AV fistula for dialysis. 2. Partial thyroidectomy. 3. Bilateral knee surgery. SOCIAL HISTORY The patient denies tobacco use. He quit drinking years ago. FAMILY HISTORY Unit #: [id number] #: [id number] Patient: JUAN PETERSEN Family history is notable for two brothers dying of myocardial infarctions at the ages of 48 and 42 respectively. ALLERGIES No known allergies. HOME MEDICATIONS Per the discharge summary from December 07, 2016 include: 1. Celexa 20 mg daily. 2. Trazodone 50 mg daily. 3. Hydroxyzine 25 mg t.i.d. p.r.n. 4. Toprol-XL 50 mg daily. 5. Pravastatin 40 mg daily. 6. Felodipine 10 mg daily. 7. Minoxidil 10 mg daily. 8. Ranitidine 150 mg b.i.d. 9. Zyloprim 100 mg b.i.d. 10. Melatonin 5 mg q.h.s. p.r.n. 11. Aspirin 81 mg daily. 12. Imdur 30 mg daily. 13. Nitroglycerin 0.4 mg sublingual p.r.n. 14. Calcitriol 0.5 mcg daily. REVIEW OF SYSTEMS A complete review of systems is negative except as indicated in the HPI. DIAGNOSTIC STUDIES LABORATORY: Comprehensive metabolic panel shows BUN and creatinine of 72 and 7.2 respectively, calcium is 11.4, phosphorus 6.2, magnesium 2.6. Complete blood count notable for hemoglobin and hematocrit of 10.6 and 32.6 respectively. PHYSICAL EXAMINATION VITAL SIGNS: Temperature is 98. Pulse 72. Respirations 16. Blood pressure 106/67. Oxygen saturation is 100% on room air. GENERAL: The patient is an -Singaporean male who is awake and alert, in no acute distress. HEENT: The head is atraumatic. Mucous membranes are moist. NECK: Neck is supple. Trachea is midline. CARDIOVASCULAR: Regular rate and rhythm. LUNGS: Lungs are clear to auscultation bilaterally with no increased work of breathing. ABDOMEN: Abdomen is soft, nontender, with bowel sounds present in all four quadrants. EXTREMITIES: There is a fistula in the left forearm. There is no pedal edema. NEUROLOGIC: The patient is awake and alert. He follows commands. PSYCHIATRIC: Mood and affect are normal. The patient is cooperative. SKIN: Skin of examined areas is warm and dry. ASSESSMENT The patient is a 61-year-old male with: 1. Wjemm-jr-ogpqwff kidney disease. 2. Hypercalcemia due to secondary hyperparathyroidism. 3. Chronic anemia. The patient's hemoglobin was 10.9 on January 19, 2017. It is 10.6 today. 4. Hypertension. 5. Hyperlipidemia. Unit #: [id number] #: [id number] Patient: JUAN PETERSEN 6. Coronary artery disease, followed by Dr. Gray. 7. Depression. 8. Gastroesophageal reflux disease. 9. Former alcohol abuse. PLAN 1. Admit for observation to med/surg. 2. Strict Is and Os. 3. Check urinalysis. 4. Consult Dr. Weathers regarding ygmhk-vr-npfkzjp kidney disease. 5. Repeat labs in the morning. 6. SCDs for DVT prophylaxis. 7. Additional workup and consultants based on above. Dictated by Gualberto Gama/cece TD: 01/29/2017 16:39 JOB #: [id number] HISTORY AND PHYSICAL Page 1 of 1 X Isadora Alanis MD X HISTORY AND PHYSICAL
--- NOTE | ~2017-01-29 | CR71 ---
[facility] A Service of [facility] RADIOLOGY TEXT RESULTS PATIENT: JUAN PETERSEN LOCATION: [facility] 470-01 : [birth year] UNIT #: [id number] AGE: [address]: Trinh Roberts MD SEX: M ORDER DR: [id number] [facility] [address] [place], [place] [address] [id number] I MR#: [id number] Acc #: [id number] NAME: JUAN PETERSEN : 1955 SEX: M STUDY DATE/TIME: 02/02/2017 15:04 UNIT: [facility] ROOM: [facility] STUDY DESCRIPTION: CR Chest Single View Attending Physician: Trinh Roberts M.D. Ordering Physician: Rhett Shetty M.D. Primary Care Physician: Evan Thompson Sr., M.D. MEDICAL IMAGING REPORT This report is preliminary unless electronic signature is present EXAM Portable chest radiograph. INDICATION Shortness breath following a tunneled catheter placed today. FINDINGS Comparison is made to a prior study from November 13, 2014. Since prior examination, right internal jugular vein tunneled dialysis catheter has been placed. This appears to terminate within the right atrium. There is cardiomegaly without evidence of vascular congestion. Right hilum appears enlarged, but is stable in size when compared to November 13, 2014. There is a suggestion of some patchy infiltrate within the right perihilar region. This may simply reflect some scarring, but I would suggest a short-term followup exam to document resolution. There is also some linear scarring versus atelectasis seen at the left lung base as well. Again, no pneumothorax or pleural effusion is seen and there is no evidence of edema. Dictated by... Esther Medina M.D. THIS IS AN ELECTRONICALLY VERIFIED REPORT Esther Medina M.D. at 02/02/2017 10:43 PM AFF/cs TD: 02/02/2017 22:36 JOB #: [id number] MEDICAL IMAGING REPORT Page 1 of 1 COPY
--- NOTE | ~2017-01-29 | CO ---
Unit #: [id number] #: [id number] Patient: JUAN BARRIOS [id number] [address] [address] [id number] I MR#: [id number] NAME: JUAN BARRIOS ROOM: [facility] Age: 61 Sex: M Admission Date: 01/29/2017 : 1955 Attending Physician: Trinh Roberts M.D. Primary Care Physician: Evan Thompson Sr., M.D. Consultation Date: 02/02/2017 CONSULTATION REPORT CONSULTING PHYSICIAN Dr. Weathers REASON FOR CONSULTATION Tunneled dialysis catheter. Mr. Barrios is a 61-year-old -[place] male with a history of chronic kidney disease. He has now progressed to end stage renal disease and was sent by his summer intern to initiate dialysis. He underwent placement of a temporary catheter in IR. He underwent creation of a left wrist fistula by Dr. Andrés Britton on January 19, 2017. He continues to make urine and denies any symptoms. PAST MEDICAL HISTORY 1. Chronic kidney disease, now end stage renal disease. 2. Hyperparathyroidism. 3. Coronary artery disease. 4. GERD. 5. Hypertension. 6. Hyperlipidemia. 7. Depression. PAST SURGICAL HISTORY 1. Left wrist fistula by Dr. Britton on January 19, 2017. 2. Partial thyroidectomy. 3. Bilateral knee surgery. SOCIAL HISTORY He is a nonsmoker. He is a previous drinker but no longer drinks. FAMILY HISTORY He had two brothers that of an IA at age of 48 and 42. His father is currently in hospice care with a history of prostate, throat and lung cancer. His mother had TB as a child but is currently alive and well. REVIEW OF SYSTEMS CONSTITUTIONAL: Negative. CARDIAC: Negative for chest pain. PULMONARY: Negative for shortness of air. GI: Negative. : Negative. MUSCULOSKELETAL: Negative. NEUROLOGIC: Negative for TIA or CVA. SKIN: Negative for rashes or wounds. Unit #: [id number] #: [id number] Patient: JUAN BARRIOS MEDICATIONS 1. Melatonin 5 mg at bedtime. 2. Desyrel 50 mg at bedtime. 3. Triamcinolone twice daily. 4. Hydrocodone, one tab q.4 hours. 5. Lasix 40 mg daily. 6. Pravastatin 40 mg daily. 7. Metoprolol 50 mg twice daily. 8. Imdur 30 mg daily. 9. Amlodipine 10 mg daily. 10. Allopurinol 100 mg twice daily. 11. Calcitonin, one spray daily. 12. Minoxidil 10 mg daily. ALLERGIES No known drug allergies. PHYSICAL ASSESSMENT VITAL SIGNS: Temperature is 97.8, respirations 16, blood pressure is 107/63, pulse is 70. EYES: There is no injected conjunctivae, no xanthelasma. EARS, NOSE, MOUTH AND THROAT: He has moist mucous membranes without pallor or cyanosis. Teeth are in fair repair. NECK: No JVD. He has a right neck temporary catheter. LUNGS: Clear without use of accessory muscles or intercostal retractions. HEART: S1 and S2. Regular rate and rhythm. ABDOMEN: Soft without hepatosplenomegaly. VASCULAR: There are no cervical bruits. Radial pulses are easily palpable. Left wrist fistula with good thrill. No pulsatile abdominal mass. Femoral, popliteal, dorsalis pedis and posterior tibial pulses are easily palpable on both sides. SKIN: There is no hemosiderin deposition, stasis dermatitis of lipodermatosclerosis. No wounds or ulcerations. (1) lower extremities. NEURO: She is alert, oriented, good historian. Answers all questions appropriately. DIAGNOSTIC STUDIES LABORATORY: PT is 10, INR is 1, PTT is 27.3, BUN is 55, creatinine 7.1, sodium 139, potassium 4.3. Hemoglobin is 10.4, hematocrit 31.6, white blood cells are 4.6. IMPRESSION 1. Now end stage renal disease: Needs tunneled catheter placement while AVF matures. Risks and benefits discussed with patient. He has agreed to proceed. 2. Hypertension. 3. Hyperlipidemia. 4. Coronary artery disease. 5. Hyperparathyroidism. PLANS Have tunneled catheter insertion today. Thank you for allowing us to participate in this patient's care. Unit #: [id number] #: [id number] Patient: JUAN BARRIOS Dictated by... Cynthia Bell A.P.R.N. for Gualberto Loza/tre TD: 02/02/2017 10:43 JOB #: [id number] CONSULTATION REPORT Page 1 of 1 X X CONSULTATION REPORT
--- NOTE | ~2017-01-29 | DS ---
Unit #: [id number] #: [id number] Patient: JUAN PETERSEN [id number] [address] [address] [id number] I MR#: [id number] NAME: JUAN PETERSEN ROOM: 470 Age: 61 Sex: M Admission Date: 01/30/2017 : 1955 Discharge Date: Attending Physician: Trinh Roberts M.D. Primary Care Physician: Evan Thompson Sr., M.D. DISCHARGE SUMMARY DISCHARGE DIAGNOSES 1. End-stage renal disease. 2. Hypercalcemia due to secondary hyperparathyroidism. 3. Anemia secondary to chronic kidney disease and also iron deficiency. 4. Hypertension. 5. Hyperlipidemia. 6. coronary artery disease. 7. Depression. 8. Gastroesophageal reflux disease. 9. Former alcohol abuse. 10. Hyperphosphatemia. 11. Hypercalcemia. CONSULTATIONS 1. Dr. Rao. 2. Dr. Bacon. PROCEDURES None. DIAGNOSTIC STUDIES LABORATORY: Vitamin B12 267. Ferritin 169. Sodium 138, potassium 3.8, creatinine 5.4. Iron 24. PRBC 258. IMAGING: Chest x-ray: No vascular congestion. ALLERGIES None. DISCHARGE MEDICATIONS 1. Triamcinolone 0.1% cream apply topically b.i.d. 2. Trazodone 50 mg at bedtime. 3. Toprol XL 50 mg b.i.d. 4. Pravastatin 40 mg daily. 5. Plendil 10 mg p.o. daily. 6. Loniten 10 mg p.o. daily. 7. Allopurinol 100 mg p.o. b.i.d. 8. Renagel 800 mg p.o. three times daily with meals. 9. Melatonin 5 mg at bedtime. 10. Lortab 5 mg q.4 p.r.n. pain. 11. Calcitonin one spray nasally daily. 12. Imdur ER 30 mg p.o. daily. HOSPITALIZATION COURSE Unit #: [id number] #: [id number] Patient: JUAN PETERSEN A 61 year old admitted because of abnormal labs. End-stage renal disease: The patient was seen by Dr. Bacon. The patient was started on hemodialysis. Tunnel catheter has been placed by vascular surgeon. He received hemodialysis during the hospitalization course. Currently, outpatient hemodialysis has been set up. The patient will be discharged. Hypercalcemia secondary to hyperparathyroidism: The patient's PTH-related peptide is high. Workup has been done in December including CAT scans of the abdomen and the thorax which did not show any malignancy. The patient was seen by Dr. Rao here. He will follow Dr. Rao as an outpatient for followup and rule out any malignancy. Anemia secondary to chronic kidney disease and iron deficiency. Hemoglobin stable. Hypertension, controlled. The patient will be discharged home with home health. Follow with family physician in one week's time. Follow with Dr. Rao in one week's time. Follow with Dr. Bacon for outpatient hemodialysis. Discharge time taken is 32 minutes. Dictated by... Gualberto Lipscomb/harinder TD: 02/03/2017 10:01 JOB #: [id number] DISCHARGE SUMMARY Page 1 of 1 X Trinh Roberts MD X DISCHARGE SUMMARY
--- NOTE | ~2017-01-29 | OR ---
Unit #: [id number] #: [id number] Patient: JUAN PETERSEN [id number] [address] [place], [place] [address] [id number] I MR#: [id number] NAME: JUAN PETERSEN ROOM: [facility] Date of Procedure: 02/02/2017 Admission Date: 01/30/2017 Surgeon: Rhett Shetty M.D. : 1955 Attending Physician: Trinh Roberts M.D. Primary Care Physician: Evan Thompson Sr., M.D. OPERATIVE REPORT PREOPERATIVE DIAGNOSIS Renal failure. POSTOPERATIVE DIAGNOSIS Renal failure. PROCEDURE PERFORMED 1. Insertion of right IJ tunneled catheter. 2. Removal of right IJ Shiley catheter. ANESTHESIA General. INDICATIONS FOR PROCEDURE This is a 61-year-old male with renal failure, requiring hemodialysis on a long-term basis via right IJ Shiley catheter. He had immature left radiocephalic arteriovenous fistula. He was recommended a tunneled catheter and removal of the Shiley catheter. Risks and benefits were explained to the patient and his brother, who understood and agreed to proceed. DESCRIPTION OF PROCEDURE The patient was brought to the operating room and general anesthesia was administered by LMA. The neck and the chest were cleaned, prepped, and draped in the usual sterile fashion. 1% lidocaine with 0.25% Marcaine was infiltrated below the site of entry of the Shiley catheter and a small skin incision was made. Using fluoroscopy, the internal jugular vein was entered with a needle and a guidewire was passed and confirmed to be in the right atrium. After serial dilatation, the dilator and sheath were placed and the dilator and the wire were removed. A previously flushed 23 cm NextStep catheter was passed through the sheath and the sheath was peeled away. A subcutaneous tunnel was made and the catheter was pulled through the tunnel leaving the cuff under the skin. Tip of the catheter was confirmed with the right atrium with no kinks. The catheter was trimmed appropriately, attached to the Y connectors, aspirated revealing free flow of venous blood, flushed and heparinized with 5000 units of heparin. It was affixed to the skin with 3-0 nylon and skin incision of the neck was closed with 4-0 Monocryl. Next, Shiley catheter was removed and pressure was used for hemostasis and dressings were placed. The patient was transported to the recovery room in stable condition. Unit #: [id number] #: [id number] Patient: JUAN PETERSEN Dictated by.Sawyer Shetty M.D. SA/yonatan TD: 02/04/2017 01:17 JOB #: [id number] OPERATIVE REPORT Page 1 of 1 X Rhett Shetty MD X PROCEDURE OPERATIVE NOTE
--- NOTE | ~2017-01-29 | XA75 ---
[facility] A Service of [facility] RADIOLOGY TEXT RESULTS PATIENT: JUAN PETERSEN LOCATION: [facility] 470-01 : [birth year] UNIT #: [id number] AGE: [address]: Trinh Roberts MD SEX: M ORDER DR: [id number] [facility]. [place], [place] [address] [id number] I MR#: [id number] Acc #: [id number] NAME: JUAN PETERSEN : 1955 SEX: M STUDY DATE/TIME: 01/29/2017 15:40 UNIT: [facility] ROOM: [facility] STUDY DESCRIPTION: XA CVC Non-Tunnel Attending Physician: Trinh Roberts M.D. Ordering Physician: Harley Weathers M.D. Primary Care Physician: Evan Thompson Sr., M.D. MEDICAL IMAGING REPORT This report is preliminary unless electronic signature is present PROCEDURE Ultrasound and fluoroscopically guided placement of a temporary dialysis catheter. INDICATION 61-year-old male with who needs dialysis. Chronic renal failure. Uremia. The fluoroscopy time was 0.4 minutes. One fluoroscopic spot image was taken. The risks, benefits and alternatives of the procedure were discussed with the patient and informed consent was obtained. In the procedure room a time-out was performed confirming correct patient and procedure. All elements of maximum sterile-barrier technique utilized according to guidelines appropriate for the procedure. TECHNIQUE/FINDINGS Ultrasound of the right internal jugular vein was performed. It is patent and compressible and images saved. Next, using full standard sterile-barrier technique including sterile caps, gowns, gloves, masks, drapes, 2% Chlorhexidine for cutaneous antisepsis, and hand hygiene, real-time sterile ultrasound guidance was utilized with sterile gel and sterile probe cover and the right internal jugular vein was punctured using a 21-gauge micropuncture needle. Through this access under fluoroscopic guidance the guidewire was placed into the SVC. Next the track was serially dilated. Next the temporary double-lumen dialysis catheter was advanced over the guidewire with its tip positioned in the upper right atrium. The catheter was flushed with heparin. Catheter was sutured into place and a sterile dressing was applied. Spot image was taken. The patient tolerated the procedure well without immediate complications. IMPRESSION [facility] A Service of [facility] RADIOLOGY TEXT RESULTS PATIENT: JUAN PETERSEN LOCATION: [facility] 470-01 : [birth year] UNIT #: [id number] AGE: [address]: Trinh Roberts MD SEX: M ORDER DR: Technically successful ultrasound and fluoroscopically guided placement of a temporary right IJ dialysis catheter. Dictated by... Josafat Saldivar M.D. THIS IS AN ELECTRONICALLY VERIFIED REPORT Josafat Saldivar M.D. at 02/01/2017 12:36 PM Vel TD: 01/30/2017 11:37 JOB #: [id number] MEDICAL IMAGING REPORT Page 1 of 1 COPY
--- NOTE | ~2017-01-29 | CO ---
Unit #: [id number] #: [id number] Patient: JUAN PETERSEN [id number] [address] [place], [place] [address] [id number] MR#: [id number] NAME: JUAN PETERSEN ROOM: [facility] Age: 61 Sex: M Admission Date: 01/29/2017 : 1955 Attending Physician: Trinh Roberts M.D. Primary Care Physician: Evan Thompson Sr., M.D. Consultation Date: 01/29/2017 CONSULTATION REPORT REASON FOR CONSULTATION Elevated creatinine level, uremia. 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 The patient also noted to have hypercalcemia, sent to the hospital for likely initiation of dialysis for his end-stage renal disease. The patient has a left forearm AV fistula that was created a week ago and is not ready for use. The patient does not report vomiting, diarrhea, NSAID use, recent IV contrast. His BUN is noted to be 72 with a creatinine level of 7.2, calcium of 11.4 with a phosphorus of 6.2. The patient does not report any CLARISSA-inhibitor/ARB in his medications. PAST MEDICAL HISTORY Significant for hypertension, secondary hyperparathyroidism, anemia of chronic kidney disease, hyperlipidemia, history of GERD. PAST SURGICAL HISTORY Significant for parathyroidectomy, bilateral knee surgery, status post left forearm AV fistula creation. ALLERGIES No known drug allergies. MEDICATIONS Minoxidil 10 mg daily, ranitidine 150 mg b.i.d., Zyloprim 100 mg b.i.d., aspirin 81 mg daily, Imdur 30 mg daily. The patient has been asked to discontinue calcitriol. Hydroxyzine 25 mg t.i.d., trazodone 50 mg daily, Celexa 20 mg daily. REVIEW OF SYSTEMS CVS: No chest pain. RESPIRATORY: No cough or expectoration. GI: No diarrhea, no vomiting. : No hematuria, no dysuria. PHYSICAL EXAMINATION GENERAL: The patient is awake, alert, and oriented. VITAL SIGNS: Temperature is 98 degrees, pulse is 72 per minute, blood pressure 106/67, oxygen saturation is 100%. Unit #: [id number] #: [id number] Patient: JUAN PETERSEN: Head is atraumatic. Extraocular movements are intact. Sclerae are anicteric. NECK: Supple. There is no elevation of the JVD. CHEST: Clear. Air entry is equal bilaterally. Breathing is vesicular in nature. HEART: S1, S2 audible. There is no S3, no S4. ABDOMEN: Soft. There is no organomegaly. No guarding. No rigidity. No rebound tenderness. EXTREMITIES: There is no edema. NURSE GYNECOLOGY: Grossly intact. Motor system is intact. Cerebellar system is intact. DIAGNOSTIC STUDIES LABORATORY RESULTS: Significant for WBC 4, hemoglobin 10.6, hematocrit 32.6, and platelets 225. Sodium is 140, potassium is 4.1, chloride is 105, CO2 is 26, glucose is 95, BUN is 72, creatinine is 7.2, calcium is 11.4. IMPRESSION 1. End-stage renal disease: The patient is clinically uremic. Volume is acceptable, but the patient has been losing weight and lost appetite. We will initiate dialysis and request dialysis catheter placement. 2. Status post left arm arteriovenous fistula creation not yet mature. 3. Anemia likely underlying chronic kidney disease, check iron stores. 4. Hypercalcemia likely underlying chronic kidney disease and worsen by calcitriol and somewhat intravascular volume depletion. 5. Acid-base is satisfactory. We will follow the patient with you. Dictated by... Harley Weathers M.D. RA/yonatan TD: 01/31/2017 00:09 JOB #: [id number] CONSULTATION REPORT Page 1 of 1 X Harley Weathers MD CONSULTATION REPORT
[~2017-01-29 10:57] MED LIST changes: -HYDROCODON-ACE1 EAC7 PO; -IMDUR PO; -MIACALCIN3.7 ML; -MINOXIDIL PO; -PATIENT'S PHARMACY; -TRIAMCINOLONE AC1 GM TOP
[2017-01-29 12:07] LABS: BASOPHIL% 0.9 % (0-2.5); DIFF IND NO; EOSINOPHIL# 0.2 X10e3 (0-0.7); EOSINOPHIL% 5.8 % (0.0-7.0); HEMATOCRIT 32.6 % (38.0-50.0); HEMOGLOBIN 10.6 gm/dL (13.0-16.0); LYMPHOCYTE# 1.2 X10e3 (1.0-3.5); LYMPHOCYTE% 29.3 % (17.0-45.0); MEAN CELL VOLUME 89.8 FL (83-96); MEAN CORPUSCULAR HEMOGLOBIN 29.3 PG (28-34); MEAN CORPUSCULAR HGB CONC 32.7 g/dL (30-36); MEAN PLATELET VOLUME 7.3 FL (6.5-11.5); MONOCYTE# 0.5 X10e3 (0-1.0); MONOCYTE% 13.6 % (3.0-12.0); NEUTROPHIL% 50.4 % (40-75); PLATELET COUNT 225 X10e3 (140-420); RED BLOOD COUNT 3.63 X10e (3.90-5.60); RED CELL DISTRIBUTION WIDTH 14.6 % (11.0-15.5)
[2017-01-29 12:53] LABS: BILIRUBIN, DIRECT 0.1 mg/dL (0.0-0.2); BILIRUBIN,INDIRECT 0.4 mg/dL (0.0-0.9); BILIRUBIN,TOTAL 0.5 mg/dL (0.2-2.0); CALCIUM SERUM 11.4 mg/dL (8.4-10.2); CREATININE SERUM 7.2 mg/dL (0.6-1.4); GLOM FILT RATE Estimated 8.7 mL/min (>60); MAGNESIUM 2.6 mg/dL (1.6-3.0); PHOSPHOROUS 6.2 mg/dL (2.5-4.6); POTASSIUM 4.1 mmol/L (3.5-5.1); PROTEIN TOTAL SERUM 7.1 g/dL (6.0-8.3)
[2017-01-29] MEDS ORDERED: DESYREL50 MG PO (15:40)
[2017-01-29] MEDS ORDERED: PATIENT'S PHARMACY (15:40)
[2017-01-29] MEDS ORDERED: MELATONIN5 M1 PO (15:40)
[2017-01-29] MEDS ORDERED: HYDROCODON-ACE1 EAC7 PO (15:41)
[2017-01-29] MEDS ORDERED: TRIAMCINOLONE AC1 GM TOP (15:41)
[2017-01-29] MEDS ORDERED: PRAVASTATIN SOD40 MG PO (15:41)
[2017-01-29] MEDS ORDERED: LASIX PO (15:41)
[2017-01-29] MEDS ORDERED: FELODIPINE ER10 M1 PO (15:42)
[2017-01-29] MEDS ORDERED: ZYLOPRIM100 MG PO (15:42)
[2017-01-29] MEDS ORDERED: METOPROLOL SUCC50 MG PO (15:42)
[2017-01-29] MEDS ORDERED: IMDUR PO (15:42)
[2017-01-29] MEDS ORDERED: MINOXIDIL PO (15:43)
[2017-01-29] MEDS ORDERED: MIACALCIN3.7 ML (15:43)
[2017-01-29 16:26] LABS: URINE SOURCE CLEAN CATCH
[2017-01-29 16:33] LABS: URINE APPEARANCE CLEAR; URINE BILIRUBIN NEG (NEG); URINE BLOOD TRACE (NEG); URINE COLOR YELLOW; URINE GLUCOSE NEG (NEG); URINE KETONE NEG (NEG); URINE LEUKOCYTE ESTERASE NEG (NEG); URINE NITRATE NEG (NEG); URINE PROTEIN 2+ (NEG); URINE UROBILINOGEN 0.2 MG/DL (NEG)
[2017-01-29 16:35] LABS: URINE BACTERIA AUWI NEG (NEGATIVE); URINE SQUAMOUS EPITHELIAL CELL NONE SEEN /[HPF]; UWBCS1 AUWI 0-2 (0-5)
[2017-01-30 03:52] LABS: BASOPHIL% 0.5 % (0-2.5); EOSINOPHIL# 0.1 X10e3 (0-0.7); EOSINOPHIL% 2.7 % (0.0-7.0); HEMATOCRIT 33.1 % (38.0-50.0); LYMPHOCYTE# 0.7 X10e3 (1.0-3.5); LYMPHOCYTE% 18.3 % (17.0-45.0); MEAN CELL VOLUME 88.8 FL (83-96); MEAN CORPUSCULAR HEMOGLOBIN 29.5 PG (28-34); MEAN CORPUSCULAR HGB CONC 33.2 g/dL (30-36); MEAN PLATELET VOLUME 7.6 FL (6.5-11.5); MONOCYTE# 0.4 X10e3 (0-1.0); MONOCYTE% 9.1 % (3.0-12.0); NEUTROPHIL# 2.8 X10e3 (1.5-7.1); NEUTROPHIL% 69.4 % (40-75); PLATELET COUNT 233 X10e3 (140-420); RED BLOOD COUNT 3.73 X10e (3.90-5.60); RED CELL DISTRIBUTION WIDTH 14.5 % (11.0-15.5)
[2017-01-30 03:53] LABS: DIFF IND NO
[2017-01-30 04:16] LABS: BUN/CREATININE RATIO 8.27; CREATININE SERUM 5.8 mg/dL (0.6-1.4); GLOM FILT RATE Estimated 11.4 mL/min (>60); MAGNESIUM 2.4 mg/dL (1.6-3.0); POTASSIUM 3.8 mmol/L (3.5-5.1)
[2017-01-31 03:36] LABS: BASOPHIL% 0.8 % (0-2.5); DIFF IND NO; EOSINOPHIL# 0.2 X10e3 (0-0.7); EOSINOPHIL% 4.9 % (0.0-7.0); HEMATOCRIT 33.2 % (38.0-50.0); HEMOGLOBIN 10.9 gm/dL (13.0-16.0); LYMPHOCYTE# 1.2 X10e3 (1.0-3.5); LYMPHOCYTE% 33.3 % (17.0-45.0); MEAN CELL VOLUME 88.7 FL (83-96); MEAN CORPUSCULAR HEMOGLOBIN 29.2 PG (28-34); MEAN PLATELET VOLUME 7.8 FL (6.5-11.5); MONOCYTE# 0.5 X10e3 (0-1.0); MONOCYTE% 13.3 % (3.0-12.0); NEUTROPHIL# 1.8 X10e3 (1.5-7.1); NEUTROPHIL% 47.7 % (40-75); PLATELET COUNT 213 X10e3 (140-420); RED BLOOD COUNT 3.74 X10e (3.90-5.60); RED CELL DISTRIBUTION WIDTH 14.3 % (11.0-15.5); WHITE BLOOD COUNT 3.7 X10e3 (4.0-10.5)
[2017-01-31 03:59] LABS: ALBUMIN SERUM 3.9 g/dL (3.5-5.0); BILIRUBIN,TOTAL 0.5 mg/dL (0.2-2.0); BUN/CREATININE RATIO 6.66; CALCIUM SERUM 11.1 mg/dL (8.4-10.2); CREATININE SERUM 5.7 mg/dL (0.6-1.4); GLOM FILT RATE Estimated 11.6 mL/min (>60); MAGNESIUM 2.3 mg/dL (1.6-3.0); PHOSPHOROUS 4.4 mg/dL (2.5-4.6); POTASSIUM 3.8 mmol/L (3.5-5.1); PROTEIN TOTAL SERUM 7.1 g/dL (6.0-8.3)
[2017-02-01 04:01] LABS: HEMATOCRIT 34.3 % (38.0-50.0); HEMOGLOBIN 11.1 gm/dL (13.0-16.0); MEAN CELL VOLUME 89.3 FL (83-96); MEAN CORPUSCULAR HEMOGLOBIN 28.9 PG (28-34); MEAN CORPUSCULAR HGB CONC 32.4 g/dL (30-36); MEAN PLATELET VOLUME 7.6 FL (6.5-11.5); RED BLOOD COUNT 3.84 X10e (3.90-5.60); RED CELL DISTRIBUTION WIDTH 14.2 % (11.0-15.5)
[2017-02-01 04:20] LABS: BUN/CREATININE RATIO 7.27; CALCIUM SERUM 11.9 mg/dL (8.4-10.2); CREATININE SERUM 6.6 mg/dL (0.6-1.4); GLOM FILT RATE Estimated 9.7 mL/min (>60); POTASSIUM 3.6 mmol/L (3.5-5.1)
[2017-02-02 03:03] LABS: BASOPHIL% 0.7 % (0-2.5); EOSINOPHIL# 0.3 X10e3 (0-0.7); EOSINOPHIL% 6.2 % (0.0-7.0); HEMATOCRIT 31.2 % (38.0-50.0); HEMOGLOBIN 10.3 gm/dL (13.0-16.0); LYMPHOCYTE# 1.4 X10e3 (1.0-3.5); LYMPHOCYTE% 30.6 % (17.0-45.0); MEAN CELL VOLUME 88.7 FL (83-96); MEAN CORPUSCULAR HEMOGLOBIN 29.1 PG (28-34); MEAN CORPUSCULAR HGB CONC 32.9 g/dL (30-36); MEAN PLATELET VOLUME 7.4 FL (6.5-11.5); MONOCYTE# 0.6 X10e3 (0-1.0); MONOCYTE% 12.4 % (3.0-12.0); NEUTROPHIL# 2.3 X10e3 (1.5-7.1); NEUTROPHIL% 50.1 % (40-75); PLATELET COUNT 203 X10e3 (140-420); RED BLOOD COUNT 3.52 X10e (3.90-5.60); RED CELL DISTRIBUTION WIDTH 14.2 % (11.0-15.5); WHITE BLOOD COUNT 4.6 X10e3 (4.0-10.5)
[2017-02-02 03:04] LABS: DIFF IND NO
[2017-02-02 03:24] LABS: ALBUMIN SERUM 3.7 g/dL (3.5-5.0); BILIRUBIN,TOTAL 0.9 mg/dL (0.2-2.0); BUN/CREATININE RATIO 7.74; CALCIUM SERUM 12.2 mg/dL (8.4-10.2); CREATININE SERUM 7.1 mg/dL (0.6-1.4); GLOM FILT RATE Estimated 8.9 mL/min (>60); MAGNESIUM 2.7 mg/dL (1.6-3.0); PHOSPHOROUS 5.7 mg/dL (2.5-4.6); POTASSIUM 4.3 mmol/L (3.5-5.1); PROTEIN TOTAL SERUM 6.4 g/dL (6.0-8.3)
[2017-02-02 07:45] LABS: HEMATOCRIT 31.6 % (38.0-50.0); HEMOGLOBIN 10.4 gm/dL (13.0-16.0)
[2017-02-02 17:45] LABS: HEMOGLOBIN 11.1 gm/dL (13.0-16.0)
[2017-02-02 20:29] LABS: HEMATOCRIT 32.9 % (38.0-50.0); HEMOGLOBIN 10.7 gm/dL (13.0-16.0)
[2017-02-03 02:39] LABS: BASOPHIL% 0.8 % (0-2.5); EOSINOPHIL# 0.3 X10e3 (0-0.7); EOSINOPHIL% 5.1 % (0.0-7.0); HEMATOCRIT 33.1 % (38.0-50.0); HEMOGLOBIN 10.9 gm/dL (13.0-16.0); MEAN CELL VOLUME 89.2 FL (83-96); MEAN CORPUSCULAR HEMOGLOBIN 29.4 PG (28-34); MEAN PLATELET VOLUME 7.3 FL (6.5-11.5); MONOCYTE# 0.6 X10e3 (0-1.0); MONOCYTE% 10.4 % (3.0-12.0); NEUTROPHIL# 3.5 X10e3 (1.5-7.1); NEUTROPHIL% 65.7 % (40-75); PLATELET COUNT 206 X10e3 (140-420); RED BLOOD COUNT 3.71 X10e (3.90-5.60); RED CELL DISTRIBUTION WIDTH 14.4 % (11.0-15.5); WHITE BLOOD COUNT 5.3 X10e3 (4.0-10.5)
[2017-02-03 02:44] LABS: DIFF IND NO
[2017-02-03 03:13] LABS: ALBUMIN SERUM 3.9 g/dL (3.5-5.0); BILIRUBIN,TOTAL 0.6 mg/dL (0.2-2.0); BUN/CREATININE RATIO 6.29; CALCIUM SERUM 10.5 mg/dL (8.4-10.2); CREATININE SERUM 5.4 mg/dL (0.6-1.4); GLOM FILT RATE Estimated 12.4 mL/min (>60); POTASSIUM 3.8 mmol/L (3.5-5.1); PROTEIN TOTAL SERUM 6.9 g/dL (6.0-8.3)
[2017-02-03 03:26] LABS: FERRITIN 169 ng/mL (24-336)
[2017-02-04 04:39] LABS: SPE A1GLOB (PNL) 0.3 g/dL (0.2-0.3); SPE A2GLOB (PNL) 0.6 g/dL (0.5-0.9); SPE ALB (PNL) 3.8 g/dL (3.8-4.8); SPE BETA 1 GLOBULIN 0.4 g/dL (0.4-0.6); SPE BETA 2 GLOBULIN 0.4 g/dL (0.2-0.5); SPE GAMMA (PNL) 1.1 g/dL (0.8-1.7); SPETP (PNL) 6.6 g/dL (6.1-8.1)
== END 2017-02-03 19:01 | disposition home or self-care (01) | DRG 683 ==
LOC: CED 10:57 → CEDOF 15:52 → CED 15:52 → C4C 20:17 → CEDOF 20:17 → C4C 01-30 07:04 → CEDOF 01-30 09:21 → C4C 01-30 19:23
PROVIDERS: Emergency Medicine; Family Medicine; Internal Medicine; Internal Medicine Hematology; Internal Medicine Nephrology; Surgery Vascular Surgery
PROC: 05HM33Z Insertion of Infusion Device into Right Internal Jugular Vein, Percutaneous Approach (ICD-10-PCS; 2017-01-30)
PROC: B513YZA Fluoroscopy of Right Jugular Veins using Other Contrast, Guidance (ICD-10-PCS; 2017-01-30)
PROC: B543ZZA Ultrasonography of Right Jugular Veins, Guidance (ICD-10-PCS; 2017-01-30)
PROC: 5A1D60Z (ICD-10-PCS; 2017-01-30)
PROC: 05HM33Z Insertion of Infusion Device into Right Internal Jugular Vein, Percutaneous Approach (ICD-10-PCS; 2017-02-02)
PROC: B513YZA Fluoroscopy of Right Jugular Veins using Other Contrast, Guidance (ICD-10-PCS; 2017-02-02)
PROC: 05PY33Z Removal of Infusion Device from Upper Vein, Percutaneous Approach (ICD-10-PCS; principal; 2017-02-02 13:00)
DX: N17.9 Acute kidney failure, unspecified (principal); I12.0 Hypertensive chronic kidney disease with stage 5 chronic kidney disease or end stage renal disease; E21.3 Hyperparathyroidism, unspecified; Z79.82 Long term (current) use of aspirin; E78.5 Hyperlipidemia, unspecified; I25.10 Atherosclerotic heart disease of native coronary artery without angina pectoris; F32.9 Major depressive disorder, single episode, unspecified; K21.9 Gastro-esophageal reflux disease without esophagitis; F10.21 Alcohol dependence, in remission; N18.6 End stage renal disease; D63.1 Anemia in chronic kidney disease; Z99.2 Dependence on renal dialysis; N28.89 Other specified disorders of kidney and ureter
CPT/HCPCS: 36415; 71010; 76000; 76937; 77001; 80048; 80053; 80076; 81003; 82607; 82728; 82947; 83036; 83540; 83550; 83735; 83883; 84100; 84165; 85014; 85018; 85025; 85027; 85610; 85730; 87086; 87340; 99285; C1752; C1894; J0690; J1644; J2250; J3010